=== PATIENT | female | born 1965 | race Caucasian/White ===

== ENCOUNTER 2018-05-07 11:22 | Outpatient (CLI) | payer BC ==
--- NOTE | 2018-05-08 12:59 | MMO ---
BILATERAL SCREENING MAMMOGRAMS: History: Annual exam. Comparison: 12-07-14 FINDINGS: This study is interpreted with the assistance of computer aided detection. There are bilateral breast implants. There are scattered fibroglandular elements bilaterally. No suspicious mass, cluster of microcalcifications or architectural distortion is evident. IMPRESSION: BIRADS category 2 - benign. Recommend annual mammography screening. POS: [facility]
== END 2018-05-07 11:23 | disposition home or self-care (01) ==
LOC: SCSMAMMO 11:22
PROVIDERS: ATTEND Family Medicine
DX: Z12.31 Encounter for screening mammogram for malignant neoplasm of breast (principal)
CPT/HCPCS: 77067

== ENCOUNTER 2021-01-19 09:00 | Outpatient (CLI) | payer BC | END 2021-01-19 09:01 | disposition home or self-care (01) | LOC: BICRAD 09:00 | PROVIDERS: ATTEND Family Medicine | DX: M79.671 Pain in right foot (principal) ==